=== PATIENT | female | born 1955 | race Caucasian/White ===

== ENCOUNTER 2017-06-28 10:16 | Day surgery (SDC) | payer OTHER ==
[2017-06-28] MEDS ORDERED: LACTATED RINGERS 1,000 ML IV ONE (10:43)
[2017-06-28] MEDS ORDERED: fentaNYL 100 MCG/2 ML VIAL IVP ONE (11:17)
[2017-06-28] MEDS ORDERED: MIDAZOLAM 2 MG/2 ML VIAL IVP ONE (11:17)
[2017-06-28 12:12] VITALS: BP 119/78
== END 2017-06-28 10:17 | disposition home or self-care (01) ==
LOC: SDS 10:16
PROVIDERS: ATTEND Surgery
PROC: 0DBP8ZX Excision of Rectum, Via Natural or Artificial Opening Endoscopic, Diagnostic (ICD-10-PCS; principal; 2017-06-28 11:15)
DX: Z12.11 Encounter for screening for malignant neoplasm of colon (principal); Z86.010 Personal history of colon polyps; K57.30 Diverticulosis of large intestine without perforation or abscess without bleeding; K62.1 Rectal polyp
CPT/HCPCS: 45380; J7120

== ENCOUNTER 2018-05-11 09:29 | Outpatient (CLI) | payer OTHER | END 2018-05-11 09:30 | disposition home or self-care (01) | LOC: DI 09:29 | PROVIDERS: ATTEND Nurse Practitioner Adult Health | DX: R01.1 Cardiac murmur, unspecified (principal); R05 Cough; R06.02 Shortness of breath; I34.0 Nonrheumatic mitral (valve) insufficiency; I51.7 Cardiomegaly | CPT/HCPCS: 93306 ==

== ENCOUNTER 2018-05-16 15:28 | Outpatient (CLI) | payer OTHER ==
--- NOTE | 2018-05-17 13:10 | Mammography Report ---
Reason: PATIENT ARRIVED LATE FOR SCREENING MAMMO Procedure Date: 05/16/2018 Accession Number: [id number] / [id number] Procedure: FÉLIX - Screening Mammo Dig Bilat CPT Code: FULL RESULT: EXAM: Screening Mammo Dig Bilat DATE: 05/16/2018 4:59 PM CLINICAL HISTORY: Screening mammogram TECHNIQUE: Bilateral CC and MLO views were obtained. COMPARISON: Mammogram 12/19/2014 FINDINGS: There are scattered fibroglandular densities. No suspicious masses, clustered microcalcifications, or regions of architectural distortion are identified. There is a right breast clip. There are benign-appearing calcifications. IMPRESSION: Benign findings RECOMMENDATION: Routine annual screening unless otherwise clinically indicated. BIRADS CATEGORY 2: Benign findings STANDARD QUALIFYING STATEMENTS: 1. This examination was reviewed without the aid of Computer-Aided Detection (CAD). 2. A negative or benign imaging report should not delay biopsy if clinically suspicious findings are present. Consider surgical consultation if warrented. More than 5% of cancers are not identified by imaging. 3. Dense breasts may obscure an underlying neoplasm.
== END 2018-05-16 15:29 | disposition home or self-care (01) ==
LOC: DI 15:28
PROVIDERS: ATTEND Nurse Practitioner Adult Health
DX: Z12.31 Encounter for screening mammogram for malignant neoplasm of breast (principal)
CPT/HCPCS: 77067